=== PATIENT | female | born 1985 | race Two or more races ===

== ENCOUNTER 2018-07-02 18:27 | Emergency (ER) | payer OTHER ==
[~2018-07-02] VITALS: Ht 167.6 cm; Wt 100.0 kg
[2018-07-02] MEDS ORDERED: IBUP-2071 PO (19:32)
[2018-07-02] MEDS ORDERED: CETI-170 PO (19:32)
[2018-07-02] MEDS ORDERED: AMOXICILLIN TRIHYDRATE 250 MG CAPSULE PO ONE (20:15)
[2018-07-02] MEDS ORDERED: HYDROCODONE/ACETAMINOPHEN 5-325 MG TABLET PO ONE (20:15)
[2018-07-02 20:56] VITALS: BP 129/93
== END 2018-07-02 20:59 | disposition home or self-care (01) ==
LOC: EMS 18:29
DX: K04.7 Periapical abscess without sinus (principal)